=== PATIENT | male | born 1995 | race Caucasian/White ===

== ENCOUNTER 2019-03-16 13:56 | Emergency (ER) | payer OTHER ==
[~2019-03-16] VITALS: Ht 180.3 cm; Wt 99.8 kg
[2019-03-16] MEDS ORDERED: TETRACAINE HCL 0.5% OPTH SOLN 4 ML BTL OP ONE (14:15)
[2019-03-16] MEDS ORDERED: FLUORESCEIN SOD(OPTH) 1 MG STRP OP ONE (14:15)
[2019-03-16 14:41] VITALS: BP 128/71
== END 2019-03-16 14:53 | disposition home or self-care (01) ==
LOC: ER 13:56
DX: S05.01XA Injury of conjunctiva and corneal abrasion without foreign body, right eye, initial encounter (principal); Y99.0 Civilian activity done for income or pay
CPT/HCPCS: 99284